=== PATIENT | female | born 1975 | race Caucasian/White ===

== ENCOUNTER 2021-03-20 07:59 | Emergency (ER) | payer BC ==
[~2021-03-20] VITALS: Ht 170.2 cm; Wt 60.0 kg
[2021-03-20 09:21] LABS: HEMATOCRIT 37.8 % (37.0-47.0); HEMOGLOBIN 12.1 g/dl (12.0-16.0); MEAN CELL VOLUME 97.7 fL CALC (80.0-100.0); MEAN CORPUSCULAR HGB 31.3 pG CALC (26.0-32.0); NEUT# 2.32 thou/uL (2.00-7.15); RED BLOOD COUNT 3.87 mill/uL (4.20-5.60); RED CELL DISTRI WIDTH 12.3 % (11.5-15.5)
[2021-03-20 09:55] LABS: ALKALINE PHOSPHATASE 47 u/l (38-126); ANION GAP 7 (6-22 (CALC)); BILIRUBIN, TOTAL 0.5 mg/dL (0.0-1.4); BUN 16 mg/dL (7-17); BUN/CREATININE RATIO 26 (12-20 (CALC)); CARBON DIOXIDE 28 mmol/l (22-30); CHLORIDE 110 mmol/l (95-108); CREATININE 0.6 mg/dL (0.5-1.0); GFR > 60 ML/MIN (>=60 (CALC)); GFR FOR AFR.AMER. > 60 ML/MIN (>=60 (CALC)); POTASSIUM 3.8 mmol/l (3.5-5.1); SGOT/AST 26 u/l (14-36); SODIUM 141 mmol/l (137-146); TOTAL PROTEIN 7.3 g/dL (6.3-8.2)
[2021-03-20 11:54] VITALS: BP 115/64
== END 2021-03-20 11:54 | disposition home or self-care (01) | DRG 103 ==
LOC: ED 07:59
PROVIDERS: Family Medicine
DX: R51.9 Headache, unspecified (principal); Z20.822 Contact with and (suspected) exposure to COVID-19

== ENCOUNTER 2022-01-19 23:14 | Emergency (ER) | payer BC ==
[~2022-01-19] VITALS: Ht 167.6 cm; Wt 61.0 kg
[2022-01-19 23:32] VITALS: BP 124/68
[2022-01-20] VITALS: BP 99/50
[2022-01-20 00:39] LABS: HEMATOCRIT 34.4 % (37.0-47.0); MEAN CELL VOLUME 95.6 fL CALC (80.0-100.0); MEAN CORPUSCULAR HGB 30.6 pG CALC (26.0-32.0); NEUT# 3.49 thou/uL (2.00-7.15); RED BLOOD COUNT 3.6 mill/uL (4.20-5.60); RED CELL DISTRI WIDTH 12.7 % (11.5-15.5)
[2022-01-20 01:00] VITALS: BP 94/54
[2022-01-20 01:05] LABS: ALKALINE PHOSPHATASE 47 u/l (38-126); ANION GAP 9 (6-22 (CALC)); BUN 14 mg/dL (7-17); BUN/CREATININE RATIO 22 (12-20 (CALC)); CARBON DIOXIDE 28 mmol/l (22-30); CHLORIDE 107 mmol/l (95-108); CREATININE 0.7 mg/dL (0.5-1.0); GFR FOR AFR.AMER. > 60 ML/MIN (>=60 (CALC)); GFR OTHER RACES > 60 ML/MIN (>=60 (CALC)); POTASSIUM 3.5 mmol/l (3.5-5.1); SGOT/AST 34 u/l (14-36); SODIUM 141 mmol/l (137-146); TOTAL PROTEIN 6.9 g/dL (6.3-8.2)
[2022-01-20 01:09] LABS: BILIRUBIN, TOTAL 0.2 mg/dL (0.0-1.4)
[2022-01-20 01:30] VITALS: BP 98/66
[2022-01-20 02:00] VITALS: BP 109/60
[2022-01-20 02:30] VITALS: BP 108/64
[2022-01-20 02:37] VITALS: BP 108/64
== END 2022-01-20 02:48 | disposition home or self-care (01) | DRG 880 ==
LOC: ED 23:14
PROVIDERS: Emergency Medicine
DX: F41.9 Anxiety disorder, unspecified (principal)

== ENCOUNTER 2024-03-05 13:34 | Emergency (ER) | payer BC ==
[~2024-03-05] VITALS: Ht 167.6 cm; Wt 62.0 kg
[2024-03-05] VITALS (12 sets, daily range): BP systolic 109–125; BP diastolic 63–76
[2024-03-05] MEDS ORDERED: METHOCARBAMOL 500 MG/TAB PO ONE (15:10)
[2024-03-05] MEDS ORDERED: KETOROLAC TROMETHAMINE 30 MG/ML SDV IM ONE (15:10)
[2024-03-05] MEDS ORDERED: METHOCARBAMOL500 MG PO (18:01)
== END 2024-03-05 18:12 | disposition home or self-care (01) | DRG 552 ==
LOC: ED 13:34
DX: M54.50 Low back pain, unspecified (principal); X50.0XXA Overexertion from strenuous movement or load, initial encounter; Y99.0 Civilian activity done for income or pay